=== PATIENT | female | born 1935 | race Caucasian/White ===

== ENCOUNTER 2024-04-30 07:58 | Inpatient (IN) | payer MEDICARE, OTHER ==
[~2024-04-30] VITALS: Ht 152.4 cm; Wt 70.3 kg
[2024-04-30 08:34] LABS: BASOPHILS % (AUTO) 0.6 % (0.0-2.0); EOSINOPHILS # (AUTO) 0.1 K/uL (0.0-0.7); HEMATOCRIT 41 % (33-45); HEMOGLOBIN 13.6 g/dL (11.5-14.8); LYMPHOCYTES # (AUTO) 1.9 K/uL (0.8-4.8); LYMPHOCYTES % (AUTO) 39.6 % (20.0-44.0); MEAN CORPUSCULAR HEMOGLOBIN 32 PG (26.0-33.0); MEAN CORPUSCULAR HGB CONC 34 g/dl (31.0-36.0); MEAN CORPUSCULAR VOLUME 95 fL (82-100); MONOCYTES # (AUTO) 0.4 K/uL (0.1-1.30); MONOCYTES % (AUTO) 9.1 % (2.0-12.0); NEUTROPHILS # (AUTO) 2.3 K/uL (1.8-8.9); NEUTROPHILS % (AUTO) 48.7 % (43.0-81.0); PLATELET COUNT (AUTO) 191 K/uL (150-450); RED BLOOD CELL COUNT(AUTO) 4.29 MIL/uL (4.0-5.2); RED CELL DISTRIBUTION WIDTH 13.9 % (11.5-15.0); WHITE BLOOD COUNT (AUTO) 4.7 K/uL (4.3-11.0)
[2024-04-30 08:45] LABS: ALANINE AMINOTRANSFERASE 29 U/L (12-78); ALBUMIN 3.2 g/dL (3.4-5.0); ALKALINE PHOSPHATASE 56 U/L (46-116); ASPARTATE AMINOTRANSFERASE 15 U/L (15-37); BILIRUBIN,DIRECT 0.1 mg/dL (0.0-0.2); BILIRUBIN,TOTAL 0.5 mg/dL (0.2-1.0); CARBON DIOXIDE 26 mmol/L (21-32); CHLORIDE 101 mmol/L (98-107); CREATININE 0.7 mg/dL (0.6-1.3); GLUCOSE 125 mg/dL (74-106); POTASSIUM 4.1 mmol/L (3.5-5.1); SODIUM SERUM 138 mmol/L (136-145); TOTAL PROTEIN, SERUM 7.3 g/dL (6.4-8.2); UREA NITROGEN, BLOOD 11 mg/dL (7-18)
[2024-04-30] MEDS ORDERED: APIXABAN 2.5 MG TABLET ONE (09:20)
[2024-04-30] MEDS: APIXABAN 2.5 MG TABLET PO STA (09:32)
[2024-04-30] MEDS ORDERED: FENO160T PO (09:58)
[2024-04-30] MEDS ORDERED: CELE-85 PO (09:58)
[2024-04-30] MEDS ORDERED: CHOL500062 PO (09:58)
[2024-04-30] MEDS ORDERED: METH2.5T14 PO (09:58)
[2024-04-30] MEDS ORDERED: CAPT25TA3 PO (09:58)
[2024-04-30] MEDS ORDERED: HYDR-4076 PO (09:58)
[2024-04-30] MEDS ORDERED: TELM80TA9 PO (09:58)
[2024-04-30] MEDS ORDERED: METO25TA20 PO (09:58)
[2024-04-30] MEDS ORDERED: COLC0.6C3 PO (09:58)
[2024-04-30] MEDS ORDERED: ROSU20TA32 PO (09:58)
[2024-04-30] MEDS ORDERED: BUSP10TA35 PO (09:58)
[2024-04-30] MEDS ORDERED: LINA145C PO (09:58)
[2024-04-30] MEDS ORDERED: LIDO700A30 TP (09:58)
[2024-04-30] MEDS ORDERED: LEVO25TA82 PO (09:58)
[2024-04-30] MEDS ORDERED: GLIM4TAB37 PO (09:58)
[2024-04-30] MEDS ORDERED: ICOS1CAP PO (09:58)
[2024-04-30] MEDS ORDERED: APIX2.5T PO (09:58)
[2024-04-30] MEDS ORDERED: MEMA28CA5 PO (09:58)
[2024-04-30] MEDS ORDERED: QUET25TA PO (09:58)
[2024-04-30] MEDS ORDERED: EZET10TA32 PO (09:58)
[2024-04-30] MEDS ORDERED: LINA5TAB PO (09:58)
[2024-04-30] MEDS ORDERED: MECL-167 PO (09:58)
[2024-04-30] MEDS ORDERED: MECLIZINE HCL 25 MG TABLET PO PRN (10:30)
[2024-04-30] MEDS ORDERED: HOME MED MISCELLANEOUS XX SCH ×3 (10:30)
[2024-04-30] MEDS ORDERED: ONDANSETRON HCL/PF 4 MG/2 ML VIAL IVP PRN (10:30)
[2024-04-30] MEDS ORDERED: CAPTOPRIL 25 MG TABLET PO PRN (10:30)
[2024-04-30] MEDS ORDERED: ACETAMINOPHEN 325 MG TABLET PO PRN (10:30)
[2024-04-30] MEDS ORDERED: HYDROCODONE/APAP 5/325MG TABLET PO PRN (10:30)
[2024-04-30] MEDS ORDERED: CELECOXIB 100 MG CAPSULE PO PRN (10:30)
[2024-04-30] MEDS ORDERED: Z GUARD REMEDY 4 OZ OINT TP PRN (10:30)
[2024-04-30] MEDS ORDERED: MAG HYDROX/AL HYDROX/SIMETH 30 ML UDC PO PRN (10:30)
[2024-04-30] MEDS ORDERED: MAGNESIUM HYDROXIDE 30 ML UDC PO PRN (10:30)
[2024-04-30] MEDS: LISINOPRIL (10MG) 10 MG TABLET PO PRN (11:22)
[2024-04-30 12:14] LABS: THYROID STIMULATING HORMONE 6.46 uIU/mL (0.358-3.74)
[2024-04-30] MEDS ORDERED: IV NS 0.9% 250 ML IV ONE (12:40)
[2024-04-30] MEDS ORDERED: IOHEXOL-350 100 ML VIAL IV ONE (12:40)
[2024-04-30] MEDS ORDERED: CT SWABBABLE VALVE TRANS SET 1 EA INFUS.SET MC ONE (12:40)
[2024-04-30] MEDS ORDERED: NITROGLYCERIN 0.4 MG/TAB BOTTLE ONE (13:01)
[2024-04-30 13:04] VITALS: BP 180/62; TEMP 97.9; O2SAT 98
[2024-04-30] MEDS: NITROGLYCERIN 0.4 MG/TAB BOTTLE SL ONE (13:08)
[2024-04-30] MEDS: hydrALAZINE HCL 25 MG TABLET PO SCH (14:03)
[2024-04-30 16:00] VITALS: BP 149/65; TEMP 98; O2SAT 98
[2024-04-30] MEDS: METOPROLOL TARTRATE 25 MG TABLET PO SCH (17:00)
[2024-04-30] MEDS: COLCHICINE 0.6 MG TABLET PO SCH (17:00)
[2024-04-30] MEDS ORDERED: busPIRone HCL 10 MG TABLET PO SCH (17:00)
[2024-04-30] MEDS: busPIRone 5 MG TABLET PO SCH (17:00)
[2024-04-30] MEDS: GLIMEPIRIDE 4 MG TABLET PO SCH (17:00)
[2024-04-30] MEDS: APIXABAN 2.5 MG TABLET PO SCH (17:44)
[2024-04-30 20:00] VITALS: BP 115/55; TEMP 97.9; O2SAT 95
[2024-04-30] MEDS: ATORVASTATIN 40 MG TABLET PO SCH (21:16)
[2024-04-30] MEDS: clonazePAM 1 MG TABLET PO PRN (22:36)
[2024-05-01] VITALS: BP 115/58; TEMP 98.1; O2SAT 96
[2024-05-01 04:00] VITALS: BP 125/63; TEMP 98; O2SAT 95
[2024-05-01 06:42] LABS: BASOPHILS % (AUTO) 0.7 % (0.0-2.0); EOSINOPHILS # (AUTO) 0.1 K/uL (0.0-0.7); EOSINOPHILS % (AUTO) 2.5 % (0.0-6.0); HEMATOCRIT 39 % (33-45); HEMOGLOBIN 13.1 g/dL (11.5-14.8); LYMPHOCYTES # (AUTO) 1.7 K/uL (0.8-4.8); LYMPHOCYTES % (AUTO) 33.9 % (20.0-44.0); MEAN CORPUSCULAR HEMOGLOBIN 32 PG (26.0-33.0); MEAN CORPUSCULAR HGB CONC 34 g/dl (31.0-36.0); MEAN CORPUSCULAR VOLUME 95 fL (82-100); MONOCYTES # (AUTO) 0.5 K/uL (0.1-1.30); MONOCYTES % (AUTO) 10.6 % (2.0-12.0); NEUTROPHILS # (AUTO) 2.6 K/uL (1.8-8.9); NEUTROPHILS % (AUTO) 52.3 % (43.0-81.0); PLATELET COUNT (AUTO) 182 K/uL (150-450); RED BLOOD CELL COUNT(AUTO) 4.07 MIL/uL (4.0-5.2); RED CELL DISTRIBUTION WIDTH 14.5 % (11.5-15.0); WHITE BLOOD COUNT (AUTO) 4.9 K/uL (4.3-11.0)
[2024-05-01 07:18] LABS: THYROID STIMULATING HORMONE 6.88 uIU/mL (0.358-3.74)
[2024-05-01] MEDS: PANTOPRAZOLE 40 MG TABLET.DR PO SCH (07:30)
[2024-05-01 07:40] LABS: CALCIUM, SERUM 8.9 mg/dL (8.5-10.1); CREATININE 0.9 mg/dL (0.6-1.3); MAGNESIUM 2.2 mg/dL (1.8-2.4); PHOSPHORUS 3.4 mg/dL (2.5-4.9); POTASSIUM 4.3 mmol/L (3.5-5.1)
[2024-05-01 08:00] VITALS: BP 129/52; TEMP 97.9; O2SAT 94
[2024-05-01] MEDS: LIDOCAINE 5% (PATCH) 1 EA PATCH TP SCH (08:38)
[2024-05-01] MEDS: EZETIMIBE 10 MG TABLET PO SCH (08:40)
[2024-05-01] MEDS: LEVOTHYROXINE SODIUM 25 MCG TABLET PO SCH (08:40)
[2024-05-01] MEDS: QUETIAPINE FUMARATE 25 MG TABLET PO SCH (08:40)
[2024-05-01] MEDS: LINAGLIPTIN 5 MG TABLET PO SCH (08:40)
[2024-05-01] MEDS: CHOLECALCIFEROL 1,000 UNIT TABLET (VIT D3) PO SCH (09:00)
[2024-05-01] MEDS: LOSARTAN POTASSIUM 50 MG TABLET PO SCH (09:00)
[2024-05-01] MEDS: MEMANTINE HCL 5 MG TABLET PO SCH (10:50)
[2024-05-01] MEDS ORDERED: LOSA100T31 PO (12:14)
[2024-05-01] MEDS ORDERED: HYDR-4076 PO (12:14)
[2024-05-01] MEDS ORDERED: NITR0.4T SL (12:14)
[2024-05-01 12:40] VITALS: BP 135/62
[2024-05-02 02:07] LABS: *SPE A/G RATIO 1.1 (0.7-1.7); *SPE ALBUMIN 3.6 g/dL (2.9-4.4); *SPE ALPHA-1-GLOBULIN 0.2 g/dL (0.0-0.4); *SPE ALPHA-2-GLOBULIN 0.6 g/dL (0.4-1.0); *SPE BETA GLOBULIN 1.1 g/dL (0.7-1.3); *SPE GLOBULIN, TOTAL 3.2 g/dL (2.2-3.9); *SPE M-SPIKE Not Observed g/dL (Not Observed); *SPE PROTEIN TOTAL 6.8 g/dL (6.0-8.5); *SPEGAMMA GLOBULIN 1.3 g/dL (0.4-1.8)
[2024-05-07] MEDS ORDERED: METHOTREXATE SODIUM (2.5MG) 2.5 MG TABLET PO SCH (09:00)
== END 2024-05-01 13:27 | disposition home or self-care (01) | DRG 303 ==
LOC: ER 08:04 → TELE1 10:15
PROVIDERS: ADMIT Nurse Practitioner Acute Care; ATTEND Nurse Practitioner Acute Care
DX: I25.10 Atherosclerotic heart disease of native coronary artery without angina pectoris (principal); I82.511 Chronic embolism and thrombosis of right femoral vein; M06.9 Rheumatoid arthritis, unspecified; K58.9 Irritable bowel syndrome, unspecified; I10 Essential (primary) hypertension; E78.5 Hyperlipidemia, unspecified; E11.9 Type 2 diabetes mellitus without complications; F03.90 Unspecified dementia, unspecified severity, without behavioral disturbance, psychotic disturbance, mood disturbance, and anxiety; Z79.899 Other long term (current) drug therapy; Z68.29 Body mass index [BMI] 29.0-29.9, adult; E66.9 Obesity, unspecified; E03.9 Hypothyroidism, unspecified; R77.1 Abnormality of globulin; Z79.01 Long term (current) use of anticoagulants; Z79.84 Long term (current) use of oral hypoglycemic drugs; Z88.8 Allergy status to other drugs, medicaments and biological substances; Z79.890 Hormone replacement therapy
CPT/HCPCS: 36415; 71045-TC; 75574; 76536-TC; 80048-TC; 80061-TC; 80076-TC; 83735-TC; 84100-TC; 84155; 84165; 84439-TC; 84443-TC; 84484-TC; 85025-TC; 85378-TC; 93307-TC; 93970-TC; G0378; J7050; Q9967